=== PATIENT | male | born 1975 | race African-American/Black ===

== ENCOUNTER 2017-07-13 10:20 | Emergency (ER) | payer SELFPAY | END 2017-07-13 12:19 | disposition home or self-care (01) | LOC: ER 10:20 | DX: R05 Cough (principal); M94.0 Chondrocostal junction syndrome [Tietze]; F17.200 Nicotine dependence, unspecified, uncomplicated; J44.9 Chronic obstructive pulmonary disease, unspecified | CPT/HCPCS: 71020; 99283 ==